=== PATIENT | female | born 1965 | race Caucasian/White ===

== ENCOUNTER 2017-08-05 06:33 | Emergency (ER) | payer OTHER ==
[2017-08-05] MEDS ORDERED: POLYMYXIN B/TRIMETH OPHTH DROPS RIGHTEYE STA (06:53)
--- NOTE | 2017-08-05 06:56 | ED Physician Documentation ---
PD HPI OPHTHO - Stated complaint Stated Complaint: EYE IRRITATION - Chief complaint Chief Complaint: Heent - History obtained from History obtained from: Patient, Family - History of Present Illness Timing - onset: Today Timing - details: Gradual onset, Still present Location: Right Quality / character: Burning Associated symptoms: Redness, Swelling, Discharge, Matting Similar symptoms before: Has not had sx before Recently seen: Not recently seen - Additional information Additional information: Patient is a 51 year old female with no significant past medical history who is presenting to the emergency department for eye pain and discharge. patient states that yesterday she had mild redness, but she woke up in the middle of the night to go to the rest room and her eye was matted shut. Review of Systems Ten Systems: 10 systems reviewed and negative Constitutional: denies: Fever, Chills Eyes: reports: Discharge, Irritation PD PAST MEDICAL HISTORY - Present Medications Home Medications: Ambulatory Orders Medication Instructions Recorded Confirmed Polymyxin B Sulf/Trimethoprim 1 drop RIGHTEYE Q3H 7 Days drops 08/05/17 [Polytrim Eye Drops] - Allergies Allergies/Adverse Reactions: Allergies Allergy/AdvReac Type Severity Reaction Status Date / Time No Known Drug Allergies Allergy Verified 08/05/17 06:55 PD ED PE NORMAL - Vitals Vital signs reviewed: Yes - General General: Alert and oriented X 3 - HEENT HEENT: Atraumatic - Cardiac Cardiac: RRR - Respiratory Respiratory: No respiratory distress - Abdomen Abdomen: Non distended - Derm Derm: Normal color - Extremities Extremities: No deformity - Neuro Neuro: Alert and oriented X 3, No motor deficit Eye Opening: Spontaneous PD ED PE EXPANDED - Eyes Eyes: Visual acuity - see nn, Injected conj/sclera, Exudate Results - Vitals Vitals: Oxygen O2 Source Room air PD MEDICAL DECISION MAKING - ED course Complexity details: reviewed old records, considered differential, d/w patient ED course: Patient was seen and examined and findings were consistent with conjunctivitis. Patient did not wear contacts. Patient was started on polytrim. Patient required no further inpatient work up and was stable for discharge with outpatient follow up. - Sepsis Event Vital Signs: Oxygen O2 Source Room air Departure - Departure Disposition: 01 Home, Self Care Clinical Impression: Conjunctivitis Condition: Good Instructions: ED Conjunctivitis Bacterial Follow-Up: Elie Marx ARNP [Primary Care Provider] - Within 3 Days Prescriptions: Polymyxin B Sulf/Trimethoprim [Polytrim Eye Drops] 1 drop RIGHTEYE Q3H 7 Days drops Comments: Your symptoms today are being caused by pick eye, or bacteria in your eye. you have been started on eye drops today and you will need to place them 6 times a day. You are very contagious so it is important that you wash your hands between all interactions with other people. You should follow up with your doctor or return to the emergency department if your symptoms don't improve over the next few days. Forms: Activity restrictions Discharge Date/Time: 08/05/17 07:03
[2017-08-05 07:03] VITALS: BP 110/68
== END 2017-08-05 07:03 | disposition home or self-care (01) ==
LOC: ED 06:33
DX: H10.9 Unspecified conjunctivitis (principal)
CPT/HCPCS: 99283; A9270

== ENCOUNTER 2017-08-09 19:05 | Emergency (ER) | payer OTHER ==
[2017-08-09 19:12] VITALS: BP 136/76
--- NOTE | 2017-08-09 19:26 | ED Physician Documentation ---
History of Present Illness - Stated complaint Stated Complaint: MED REFILL - EYE REDNESS - Chief complaint Chief Complaint: General - History obtained from History obtained from: Patient - History of Present Illness Timing: Today Pain level max: 0 Pain level now: 0 - Additonal information Additional information: dropped her eye drops for pink eye in the sink, requests refill. States her symptoms are improving from her prior ED visit Review of Systems Constitutional: denies: Fever Eyes: denies: Loss of vision, Decreased vision PD PAST MEDICAL HISTORY - Past Medical History Endocrine/Autoimmune: HyPOthyroidism - Past Surgical History Past Surgical History: Yes General: Cholecystectomy /[employer]: Tubal ligation - Present Medications Home Medications: Ambulatory Orders Medication Instructions Recorded Confirmed Polymyxin B Sulf/Trimethoprim 1 drop RIGHTEYE Q3H 7 Days drops 08/05/17 [Polytrim Eye Drops] Polymyxin B/Trimeth Ophth Drop 1 drops RIGHTEYE Q3H 7 Days #1 08/09/17 [Polytrim Ophth Drops] bottle - Allergies Allergies/Adverse Reactions: Allergies Allergy/AdvReac Type Severity Reaction Status Date / Time No Known Drug Allergies Allergy Verified 08/09/17 19:12 - Social History Does the pt smoke?: No Smoking Status: Never smoker Does the pt drink ETOH?: Yes Does the pt have substance abuse?: No - Immunizations Immunizations are current?: Yes - POLST Patient has POLST: No PD ED PE NORMAL - Vitals Vital signs reviewed: Yes - General General: Alert and oriented X 3, No acute distress - HEENT HEENT: PERRL, EOMI, Other (Minimal conjunctival injection on the right eye. No discharge or drainage. normal lids.) - Derm Derm: Warm and dry - Neuro Neuro: Alert and oriented X 3 Results - Vitals Vitals: Vital Signs - 24 hr 08/09/17 19:08 Temperature 36.4 C L Heart Rate 71 Respiratory 16 Rate Blood Pressure 136/76 H O2 Saturation 99 Oxygen O2 Source Room air PD MEDICAL DECISION MAKING - ED course Complexity details: considered differential, d/w patient ED course: Patient is a 52-year-old female who was part of the way through her course of ophthalmic antibiotics for bacterial conjunctivitis of the right eye. Dropped her antibiotics in the sink and is afraid they became contaminated. Therefore she is here requesting a refill. Will refill the Polytrim for her. She does not wear contacts. Appears to be improving as expected. Patient counseled regarding signs and symptoms for which I believe and urgent re-evaluation would be necessary. Patient with good understanding of and agreement to plan and is comfortable going home at this time This document was made in part using voice recognition software. While efforts are made to proofread this document, sound alike and grammatical errors may occur. - Sepsis Event Vital Signs: Vital Signs - 24 hr 08/09/17 19:08 Temperature 36.4 C L Heart Rate 71 Respiratory 16 Rate Blood Pressure 136/76 H O2 Saturation 99 Oxygen O2 Source Room air Departure - Departure Disposition: 01 Home, Self Care Clinical Impression: Conjunctivitis Qualifiers: Conjunctivitis type: acute Acute conjunctivitis type: bacterial Laterality: right Qualified Code(s): H10.31 - Unspecified acute conjunctivitis, right eye Condition: Good Instructions: ED Conjunctivitis Bacterial Follow-Up: Elie Marx ARNP [Primary Care Provider] - Within 1 week Prescriptions: Polymyxin B/Trimeth Ophth Drop [Polytrim Ophth Drops] 1 drops RIGHTEYE Q3H 7 Days #1 bottle Comments: Return if you worsen. Take the eye drops as prescribed. Discharge Date/Time: 08/09/17 19:34
== END 2017-08-09 19:34 | disposition home or self-care (01) ==
LOC: ED 19:05
DX: Z76.0 Encounter for issue of repeat prescription (principal); H10.31 Unspecified acute conjunctivitis, right eye; E03.9 Hypothyroidism, unspecified
CPT/HCPCS: 99283